=== PATIENT | female | born 1980 | race Caucasian/White ===

== ENCOUNTER 2019-03-18 12:13 | Emergency (ER) | payer OTHER ==
[~2019-03-18] VITALS: Ht 167.6 cm; Wt 80.1 kg
[2019-03-18] MEDS ORDERED: NOVOINJ SC (12:18)
--- NOTE | 2019-03-18 12:51 | REP ---
CT brain: 03/18/2019. Indication: Headache. Comparison: None. Technique: Unenhanced axial CT images of the brain were performed with coronal reconstructions provided. Findings: There is no acute intracranial hemorrhage, acute cortical infarction or mass effect. 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 Diffuse volume loss is present. The visualized paranasal sinuses and mastoid air cells are clear. Impression: No acute intracranial process. Cerebral atrophy. Electronically Signed by Diogo Delvalle DO 03/18/2019 12:43 P
[2019-03-18 13:08] LABS: BASO % 0.4 % (0.0-1.0); EOS # 0.1 10^3/uL (0.0-0.5); EOS % 2.6 % (0.0-3.0); HEMATOCRIT 41.9 % (36.0-47.0); HEMOGLOBIN 13.8 g/dl (12.0-15.5); LYMPH # 1.3 10^3/uL (1.5-5.0); LYMPH % 27.4 % (24.0-44.0); MEAN CORPUSCULAR HEMOGLOBIN 31.3 pg (27.0-33.0); MEAN CORPUSCULAR HGB CONC 32.9 g/dl (32.0-36.5); MONO # 0.3 10^3/uL (0.0-0.8); MONO % 6.8 % (0.0-5.0); NEUTROPHILS # 2.9 10^3/uL (1.5-8.5); NEUTROPHILS % 62.6 % (36.0-66.0); PLATELET COUNT, AUTOMATED 246 10^3/uL (150-450); RED BLOOD COUNT 4.41 10^6/uL (4.00-5.40); WHITE BLOOD COUNT 4.7 10^3/uL (4.0-10.0)
[2019-03-18 13:52] LABS: BLOOD UREA NITROGEN 16 MG/DL (7-18); CALCIUM LEVEL 9.2 MG/DL (8.5-10.1); CARBON DIOXIDE LEVEL 27 MEQ/L (21-32); CHLORIDE LEVEL 105 MEQ/L (98-107); CREATININE FOR GFR 0.73 MG/DL (0.55-1.30); GLOMERULAR FILTRATION RATE > 60.0 (>60); GLUCOSE, FASTING 77 MG/DL (70-100); POTASSIUM SERUM 4.3 MEQ/L (3.5-5.1); SODIUM LEVEL 139 MEQ/L (136-145)
[2019-03-18] MEDS ORDERED: NS 1,000 ML IV ONE (14:00)
[2019-03-18] MEDS ORDERED: METOCLOPRAMIDE INJ 10MG/2ML VIAL (J2765) IV ONE (14:00)
[2019-03-18] MEDS ORDERED: KETOROLAC 30 MG/ML VIAL (J1885) IM ONE (14:00)
[2019-03-18] MEDS ORDERED: diphenhydrAMINE INJ 50MG/ML VIAL (J1200) IV ONE (14:00)
[2019-03-18 15:25] VITALS: BP 116/87
== END 2019-03-18 15:25 | disposition home or self-care (01) ==
LOC: M ED 12:13
DX: R51 Headache (principal); E11.9 Type 2 diabetes mellitus without complications; G31.9 Degenerative disease of nervous system, unspecified; Z79.4 Long term (current) use of insulin
CPT/HCPCS: 70450; 80048; 85025; 96361; 96372; 96374; 96375; 99284; J1200; J1885; J2765